=== PATIENT | male | born 2000 | race African-American/Black ===

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

== ENCOUNTER 2019-05-17 17:19 | Emergency (ER) | payer OTHER | END 2019-05-17 21:55 | disposition home or self-care (01) | LOC: JER 17:19 ==

== ENCOUNTER 2020-08-01 11:36 | Emergency (ER) | payer OTHER ==
[2020-08-01 11:58] VITALS: BMI 21.5
[2020-08-01 15:19] VITALS: BP 126/86; PULSE 86; TEMP 98.6
== END 2020-08-01 15:19 | disposition home or self-care (01) ==
LOC: JER 11:36
DX: R56.9 Unspecified convulsions (principal)
CPT/HCPCS: 82962; 99284-25